=== PATIENT | male | born 1955 | race Caucasian/White ===

== ENCOUNTER 2018-06-30 05:38 | Outpatient (CLI) | payer BC ==
[~2018-06-30] VITALS: Ht 185.4 cm; Wt 107.0 kg
[~2018-06-30 05:38] MED LIST: EZET10TA5 PO; SIMV20TA3 PO
[2018-06-30] MEDS ORDERED: LOSA100T8 PO (13:38)
[2018-06-30] MEDS ORDERED: ATOR20TA66 PO (13:38)
== END 2018-06-30 13:41 | disposition home or self-care (01) ==
LOC: PREOP 05:38
PROVIDERS: ATTEND Internal Medicine
DX: Z01.818 Encounter for other preprocedural examination (principal)

== ENCOUNTER 2018-07-07 07:43 | Day surgery (SDC) | payer BC ==
--- NOTE | 2018-06-22 16:37 | HISTORY AND PHYSICAL ---
DATE OF SERVICE: COLONOSCOPY HISTORY AND PHYSICAL HISTORY OF PRESENT ILLNESS: The patient is a 62-year-old white male seen in the office on for followup of hypertension. It had been 10 years since his last screening colonoscopy that revealed no significant abnormalities. Fortunately, he has been feeling well and he voiced no complaints. FAMILY HISTORY: Pertinent for prostate cancer in his dad who also had a history of vascular disease, predominantly coronary artery and parkinsonism, he in his early 80s. Mother in her late 80s of complications of diabetes with a stroke. Has 4 siblings that are all alive and well in their 50s. PHYSICAL EXAMINATION: GENERAL: Revealed a well-appearing white male in no acute distress. VITAL SIGNS: Weight 236 pounds, was down 1.6 pounds from 6 months ago, initial blood pressure 146/96, at the end of the interview 130/88. HEENT: Unremarkable. Sclerae nonicteric. He is a Mallampati class 2 oropharyngeal configuration with no evidence for erythema or exudate. NECK: Revealed no JVD, adenopathy or bruits. CHEST: Clear to auscultation. CARDIOVASCULAR: Revealed a regular rate and rhythm without murmur, S3 or S4. ABDOMEN: Soft, supple without mass, organomegaly, or tenderness. LABORATORY DATA: Chemistry panel, lipid panel were obtained. ALT was mildly elevated at 40 and PSA was mildly elevated at 5.35. The patient reports no significant alcohol intake. ASSESSMENT AND PLAN: 1. The patient was set up for screening colonoscopy. Prep instructions were given and questions were answered. 2. Careful attention to digital examination of the prostate will be given, as his PSA was mildly elevated at 5.35 with a positive family history of prostate cancer in his father. 3. Mild ALT elevation, suspect nonalcoholic fatty liver. We will need to question the patient again about alcohol consumption and discuss the importance of continued weight loss. He was scheduled for return in 6 months and we will need to repeat a chemistry panel and possibly a PSA at that time. Job ID: [id number] DocumentID: [id number] Dictated Date: 06/14/2018 20:45:13 Inverform Machine Operator Date: 06/14/2018 21:37:12 Dictated By: MATY WOMACK MD MTDD
[~2018-07-07] VITALS: Ht 185.4 cm; Wt 107.0 kg
[~2018-07-07 07:43] MED LIST changes: +ATOR20TA66 PO; +LOSA100T8 PO
[2018-07-07] MEDS ORDERED: D5 LR IV SOLUTION 1,000 ML IV ONE (07:51)
[2018-07-07] MEDS ORDERED: D5 LR IV SOLUTION 1,000 ML IV STA (08:07)
--- NOTE | 2018-07-07 08:12 | Pre-Op Note & Conscious Sedat ---
Pre-Operative Progress Note H&P Reviewed The H&P was reviewed, patient examined and no changes noted. Date H&P Reviewed: Jul 07, 2018 Time H&P Reviewed: 07:55 Conscious Sedation Pre-Proced ASA Score 2 For ASA 3 and 4: Consider anesthesia and medical clearance. Also, for patients with a history of failed moderate sedation consider anesthesia. Airway Lungs Heart ASA score ASA 1: a normal healthy patient ASA 2: a patient with a mild systemic disease (mid diabetes, controlled hypertension, obesity ASA 3: a patient with a severe systemic disease that limits activity (angina , COPD, prior Myocardial infarction) ASA 4: a patient with an incapacitating disease that is a constant threat to life (CHF, renal failure) ASA 5: a moribund patient not expected to survive 24 hrs. (ruptured aneurysm) ASA 6: a declared brain patient whose organs are being harvested. For emergent operations, add the letter E after the classification Mallampati Classification Grade 2 Sedation Plan Analgesia, Amnesia, Plan communicated to team members, Discussed options with patient/fam, Discussed risks with patient/fam The patient is an appropriate candidate to undergo the planned procedure, sedation, and anesthesia. The patient immediately re-assessed prior to indication. MATY WOMACK MD Jul 07, 2018 08:12
[2018-07-07] MEDS ORDERED: MIDAZOLAM 2 MG/2 ML (VERSED) VIAL ONE (08:13)
[2018-07-07] MEDS ORDERED: fentaNYL INJECTION 100 MCG/2 ML AMP ONE (08:14)
[2018-07-07] MEDS ORDERED: LIDOCAINE JELLY 2% 6 ML SYRINGE ONE (08:14)
[2018-07-07] MEDS ORDERED: LIDOCAINE JELLY 2% 6 ML SYRINGE MM PRN (08:15)
[2018-07-07] MEDS ORDERED: fentaNYL INJECTION 100 MCG/2 ML AMP IVP ONE (08:15)
[2018-07-07] MEDS ORDERED: MIDAZOLAM 2 MG/2 ML (VERSED) VIAL IVP ONE (08:15)
[2018-07-07 08:25] VITALS: BP 135/93
[2018-07-07 08:45] VITALS: BP 129/83
[2018-07-07 09:15] VITALS: BP 144/85
[2018-07-07 09:50] VITALS: BP 144/85
--- NOTE | 2018-07-07 23:33 | OPERATIVE REPORT ---
DATE OF SERVICE: COLONOSCOPY SUMMARY PRIMARY CARE PHYSICIAN: Maty Womack MD INDICATION FOR PROCEDURE: Screening. DESCRIPTION OF PROCEDURE: The patient was placed in the left lateral decubitus position. Prior to undergoing colonoscopy, digital rectal evaluation was performed. Anal sphincter tone was normal and the perianal reflexes intact. Prostate is moderately enlarged, anodular and nontender to digital inspection. No other abnormalities noted on digital inspection of anal canal or distal rectal vault. The colonoscope was then inserted into the rectum under direct visualization advanced to the cecum. The cecum was identified by identification of the ileocecal valve and cecal strap. Careful inspection was made as the colonoscope was withdrawn. The patient tolerated the procedure well. FINDINGS: There were no evidence for internal or external hemorrhoids and the rectum was unremarkable. The sigmoid colon was unremarkable except for one distal diminutive polyp that was biopsied and ablated and submitted for histopathology. There was no subsequent blood loss. This was done via hot forceps. The descending colon, splenic flexure and transverse colon were unremarkable. Other diminutive 3 mm polyp was noted in hepatic flexure, was subsequently biopsied and ablated and submitted for histopathology. The ascending colon and cecum were unremarkable. ASSESSMENT: Two diminutive polyps were removed, one from the hepatic flexure, the other from the distal sigmoid colon via hot forceps with an otherwise unremarkable colonoscopy. We will await histopathology report likely recommend a 5-year surveillance interval. The patient did have slightly elevated PSA as I recall around 5.3, but his prostate is moderately enlarged and otherwise unremarkable to digital inspection with no evidence for any firmness or nodularity. The patient will be scheduled to return in six months for repeat PSA evaluation as well as CMP as liver function tests were mildly elevated. Did take additional history. The patient consumes 2 to 3 beers per week only. No history of binge drinking in the recent past, making findings most consistent with nonalcoholic fatty liver disease. Discussed the importance of portion control after taking dietary history. He is getting no calories and fluids mostly over doing breads, potatoes, pastas as sweets have not been a big issue either. Advised making reasonable changes and adding physical activity would allow one to two pound weight loss per month with a total goal of 10% weight loss being ideal. Job ID: [id number] DocumentID: [id number] Dictated Date: 07/07/2018 11:46:20 Inspector Soldering Date: 07/07/2018 23:32:21 Dictated By: MATY WOMACK MD MTDD
== END 2018-07-07 09:50 | disposition home or self-care (01) ==
LOC: ENDO 07:43
PROVIDERS: ATTEND Internal Medicine
DX: Z12.11 Encounter for screening for malignant neoplasm of colon (principal); D12.3 Benign neoplasm of transverse colon; K63.5 Polyp of colon; N40.0 Benign prostatic hyperplasia without lower urinary tract symptoms; I10 Essential (primary) hypertension; Z80.42 Family history of malignant neoplasm of prostate